=== PATIENT | male | born 1995 | race Two or more races ===

== ENCOUNTER 2018-06-24 17:09 | Emergency (ER) | payer BC, OTHER ==
[~2018-06-24] VITALS: Ht 175.3 cm; Wt 68.0 kg
[2018-06-24 17:31] VITALS: BP 150/87
[2018-06-24] MEDS ORDERED: BACLOFEN 10 MG TAB PO ONE (19:30)
[2018-06-24] MEDS ORDERED: HYDROcodone-ACET 10/325MG TAB PO ONE (19:30)
== END 2018-06-24 22:18 | disposition home or self-care (01) ==
LOC: ER 17:09
DX: S90.31XA Contusion of right foot, initial encounter (principal); V86.56XA Driver of dirt bike or motor/cross bike injured in nontraffic accident, initial encounter; Y93.89 Activity, other specified; Y99.8 Other external cause status; Y92.410 Unspecified street and highway as the place of occurrence of the external cause
CPT/HCPCS: 73610; 73630; 99283; L3260

== ENCOUNTER 2020-05-05 09:00 | Emergency (ER) | payer SELFPAY ==
[~2020-05-05] VITALS: Ht 175.3 cm; Wt 72.6 kg
[2020-05-05 09:25] VITALS: BP 159/110
[2020-05-05] MEDS ORDERED: ACETAMINOPHEN/CODEINE#3 (300/30mg) TAB PO ONE (10:15)
== END 2020-05-05 10:10 | disposition home or self-care (01) ==
LOC: ER 09:00
DX: S62.660B Nondisplaced fracture of distal phalanx of right index finger, initial encounter for open fracture (principal); X58.XXXA Exposure to other specified factors, initial encounter; Y93.89 Activity, other specified; Y92.89 Other specified places as the place of occurrence of the external cause; Y99.8 Other external cause status
CPT/HCPCS: 29130; 73140